=== PATIENT | female | born 1985 | race Hispanic/Latino ===

== ENCOUNTER 2018-04-30 16:16 | Emergency (ER) ==
[~2018-04-30] VITALS: Ht 154.9 cm; Wt 88.5 kg
[2018-04-30] MEDS ORDERED: [UNRECOGNIZED DRUG - OTHER] OP STA (16:29)
[2018-04-30] MEDS ORDERED: TETRACAINE HCL 0.5% OPTH SOLN 4 ML BTL OP ONE (16:30)
[2018-04-30] MEDS ORDERED: FLUORESCEIN SOD(OPTH) 1 MG STRP OP ONE (16:30)
[2018-04-30 16:40] VITALS: BP 140/88
== END 2018-04-30 16:44 | disposition home or self-care (01) ==
LOC: ER 16:16
DX: H10.231 Serous conjunctivitis, except viral, right eye (principal)
CPT/HCPCS: 99282

== ENCOUNTER 2024-01-25 11:45 | Emergency (ER) | payer OTHER ==
[~2024-01-25] VITALS: Ht 154.9 cm; Wt 75.3 kg
[2024-01-25 13:03] VITALS: PULSE 105; RESP 18; TEMP 98.3; O2SAT 100
[2024-01-25] MEDS ORDERED: AMOX TR-K CLV1 EAC2 PO (13:30)
[2024-01-25] MEDS ORDERED: NOVOLOG100 UNIT/1 SC (13:30)
[2024-01-25] MEDS ORDERED: IBUPROFEN200 MG PO (13:30)
== END 2024-01-25 14:05 | disposition home or self-care (01) ==
LOC: FSED 11:51
DX: K08.89 Other specified disorders of teeth and supporting structures (principal); K02.9 Dental caries, unspecified; E11.65 Type 2 diabetes mellitus with hyperglycemia
CPT/HCPCS: 36415; 82948; 99283